=== PATIENT | male | born 1970 | race Caucasian/White ===

== ENCOUNTER 2021-05-30 10:02 | Emergency (ER) | payer OTHER ==
[~2021-05-30] VITALS: Ht 190.5 cm; Wt 77.0 kg
[2021-05-30 10:41] VITALS: BP 113/77
[2021-05-30] MEDS ORDERED: ketorolac trometh. 30mg/ml inj. IM ONE (11:10)
== END 2021-05-30 12:02 | disposition home or self-care (01) ==
LOC: ER 10:04
DX: M25.511 Pain in right shoulder (principal); G89.29 Other chronic pain
CPT/HCPCS: 96372; 99283; J1885